=== PATIENT | female | born 1965 | race Caucasian/White ===

== ENCOUNTER 2017-11-03 05:59 | Day surgery (SDC) | payer BC ==
[2017-11-03] MEDS ORDERED: FENTAnyl 50 MCG/ML VIAL (07:56)
[2017-11-03] MEDS ORDERED: MIDAZOLAM 1 MG/ML 2 ML INJ (07:56)
[2017-11-03] MEDS ORDERED: PROPOFOL 20 ML (07:56)
== END 2017-11-03 10:38 | disposition home or self-care (01) ==
LOC: GIL 05:59
DX: Z12.11 Encounter for screening for malignant neoplasm of colon (principal); D12.0 Benign neoplasm of cecum; K29.60 Other gastritis without bleeding; K31.7 Polyp of stomach and duodenum; K64.8 Other hemorrhoids
CPT/HCPCS: 43239; 87081; 88305